=== PATIENT | female | born 1940 | race Two or more races ===

== ENCOUNTER 2024-03-15 18:07 | Emergency (ER) | payer SELFPAY ==
[~2024-03-15] VITALS: Ht 154.9 cm; Wt 83.9 kg
[2024-03-15] MEDS ORDERED: LIDOCAINE 1%-EPI 1:100,000 20 ML VIAL ONE (19:08)
[2024-03-15] MEDS: LIDOCAINE HCL/PF 1% 30 ML VIAL TP ONE (19:26)
[2024-03-15 21:12] VITALS: BP 158/93; TEMP 97.9; O2SAT 97
== END 2024-03-15 21:11 | disposition home or self-care (01) ==
LOC: ER 18:20
DX: S01.01XA Laceration without foreign body of scalp, initial encounter (principal); E11.9 Type 2 diabetes mellitus without complications; R51.9 Headache, unspecified; W18.39XA Other fall on same level, initial encounter; Y93.89 Activity, other specified; Y92.89 Other specified places as the place of occurrence of the external cause; Y99.8 Other external cause status
CPT/HCPCS: 70450-TC; 72125-TC; J3490